=== PATIENT | male | born 1945 | race African-American/Black ===

== ENCOUNTER 2019-04-08 11:35 | Outpatient (CLI) | payer MEDICARE ==
--- NOTE | 2019-04-08 12:20 | RAD ---
XR Chest Pa Lat STANDARD History: [Acute bronchitis with COPD J 44.0] Comparison: Radiograph 2011. Radiograph June 2018 Findings: Heart size mildly enlarged. No pneumothorax. No effusion. No focal airspace consolidation. Dual-lead pacer is in place, unchanged. No acute osseous abnormality. Impression: Cardiomegaly otherwise no acute intrathoracic abnormality.
== END 2019-04-08 11:36 | disposition home or self-care (01) ==
LOC: BICRAD 11:35
PROVIDERS: ATTEND Family Medicine
DX: J44.0 Chronic obstructive pulmonary disease with (acute) lower respiratory infection (principal); I51.7 Cardiomegaly
CPT/HCPCS: 71046

== ENCOUNTER 2019-12-22 14:33 | Outpatient (CLI) | payer MEDICARE, MEDICAID ==
--- NOTE | 2019-12-22 15:43 | RAD ---
THORACIC SPINE THREE VIEWS: History: Midback pain. FINDINGS: Vertebral bodies appear to maintain normal height. Prominent osteophytic change is seen in the mid to lower thoracic spine. Pedicles are intact. IMPRESSION: Moderate osteoarthritic changes of the spine. POS: MARIA
--- NOTE | 2019-12-22 15:44 | RAD ---
RIGHT SHOULDER THREE VIEWS: History: Right shoulder pain. FINDINGS: There are some moderate arthritic changes of the glenohumeral and AC joints. There are no signs of fr acture. IMPRESSION: Mild to moderate osteoarthritic change of the shoulder. POS: MARIA
--- NOTE | 2019-12-22 15:46 | RAD ---
LUMBAR SPINE TWO VIEWS: History: Low back pain. FINDINGS: Vertebral bodies are normal in height. There are degenerative osteophytes along the course of the spi ne. There is some very minimal disc narrowing at L4-5. Degenerative facet changes are noted. Pedicles are intact. IMPRESSION: Arthritic changes of the spine, fairly similar in appearance to the previous 01-06-04 study. Slight inc rease in osteophytic and facet hypertrophic changes. POS: MARIA
== END 2019-12-22 14:34 | disposition home or self-care (01) ==
LOC: BICRAD 14:33
PROVIDERS: ATTEND Family Medicine
DX: M25.511 Pain in right shoulder (principal); G89.29 Other chronic pain; M54.6 Pain in thoracic spine; M46.96 Unspecified inflammatory spondylopathy, lumbar region; M25.78 Osteophyte, vertebrae; M19.011 Primary osteoarthritis, right shoulder; M47.814 Spondylosis without myelopathy or radiculopathy, thoracic region
CPT/HCPCS: 36415; 72072; 72100; 80053; 80061; 85025

== ENCOUNTER 2020-07-12 13:11 | Emergency (ER) | payer MEDICARE, OTHER ==
--- NOTE | 2020-07-12 13:33 | RAD ---
CHEST 1 VIEW: HISTORY: Chest pain and shortness of breath. COMPARISON: Radiograph of 06/17/2020. FINDINGS: Heart size is enlarged. Mild edema. Moderate right effusion. No pneumothorax. Pacer leads project over the right atrium and right ventricle. IMPRESSION: Cardiomegaly with mild pulmonary edema and moderate right effusion. POS: HOME
[2020-07-12 13:38] LABS: Hemoglobin 13.8 g/dL (14.0-18.0); Mean Corpuscular HGB CONC 32.8 g/dL (32.0-36.0); Mean Corpuscular Hemoglobin 35.2 pg (27.0-31.0); Mean Platelet Volume 8.5 fL (7.4-10.4); Platelet Count 148 thou/uL (130-400); RBC Distribution Width 11.9 % (11.5-14.5); Red Blood Cell (RBC) Count 3.92 mill/uL (4.70-6.10); White Blood Cell (WBC) Count 4.3 thou/uL (4.8-10.8)
[2020-07-12 13:53] LABS: #Basophils 0.1 thou/uL (0.0-0.2); #Eosinphils 0.2 thou/uL (0.0-0.7); #Lymphocytes 1.8 thou/uL (1.20-3.40); #Monocytes 0.7 thou/uL (0.11-0.59); #Neutrophils 2.2 thou/uL (1.40-6.50); %Basophils 1.2 % (0.0-1.0); %Eosinophils 4.2 % (0.0-10.0); %Lymphocytes 35.7 % (21.0-51.0); %Monocytes 14.9 % (0.0-10.0); Eosinophils 3 % (0-10); Lymphocytes 28 % (21-51); MDiff Complete? YES; Macrocytosis SLIGHT = 6-15 cells (100X) (0-5/hpf); Monocytes 17 % (0-10); Neutrophil 45 % (42-75); Platelet Morphology Comment Appears Adequate; Reactive Lymphocytes 5 % (0-10)
[2020-07-12 13:55] LABS: ALT (SGPT) 29 U/L (8-55); AST (SGOT) 36 U/L (5-34); Albumin 3.6 g/dL (3.4-4.8); Alkaline Phosphatase 75 U/L (40-110); Anion Gap 17 mmol/L (10-20); BUN (Urea Nitrogen) 12 mg/dL (8.4-25.7); Bilirubin, Total 1.4 mg/dL (0.2-1.2); Calc. Creatinine Clearance 0 mL/min (70-130); Carbon Dioxide 23 mmol/L (23-31); Chloride 100 mmol/L (98-107); Estimated GFR-MDRD 73; Globulin 2.6 g/dL (2.4-3.5); Glucose 101 mg/dL (83-110); Potassium 4.1 mmol/L (3.5-5.1); Protein, Total 6.2 g/dL (5.8-8.1); Sodium 136 mmol/L (136-145)
[2020-07-12] MEDS ORDERED: Metoprolol Tartrate 5 MG/5 ML VIAL ONE ×2 (13:57→15:20)
[2020-07-12] MEDS ORDERED: Aspirin Chewable 81 MG TAB ONE (15:20)
[2020-07-12] MEDS ORDERED: Furosemide 40 MG/4 ML VIAL ONE (15:20)
--- NOTE | 2020-07-17 15:49 | EKG ---
Test Reason : Blood Pressure : / mmHG Vent. Rate : 060 BPM Atrial Rate : 060 BPM P-R Int : 244 ms QRS Dur : 086 ms QT Int : 460 ms P-R-T Axes : 085 007 -12 degrees QTc Int : 460 ms Atrial-paced rhythm with prolonged AV conduction Abnormal ECG Confirmed by AUGUSTO TOBIN DO ([id number]), editorial director JUAN FRANK ([id number]) on 07/17/2020 3:48:59 PM Referred By: Confirmed By:AUGUSTO TOBIN DO
--- NOTE | 2020-07-17 16:06 | EKG ---
Test Reason : Blood Pressure : / mmHG Vent. Rate : 105 BPM Atrial Rate : 089 BPM P-R Int : 000 ms QRS Dur : 080 ms QT Int : 374 ms P-R-T Axes : 000 032 267 degrees QTc Int : 494 ms Atrial fibrillation w/intermittent pacing Septal infarct , age undetermined Abnormal ECG Confirmed by AUGUSTO TOBIN DO ([id number]), material expeditor JUAN FRANK ([id number]) on 07/17/2020 4:05:56 PM Referred By: Confirmed By:AUGUSTO TOBIN DO
== END 2020-07-12 16:42 | disposition left against medical advice (07) ==
LOC: ERS 13:11
DX: I11.0 Hypertensive heart disease with heart failure (principal); I50.9 Heart failure, unspecified; I48.91 Unspecified atrial fibrillation; R06.2 Wheezing; F32.9 Major depressive disorder, single episode, unspecified; F17.210 Nicotine dependence, cigarettes, uncomplicated; Z79.899 Other long term (current) drug therapy; Z79.01 Long term (current) use of anticoagulants
CPT/HCPCS: 36415; 71045; 80053; 82553; 83880; 84484; 85025; 92960; 93005; 99156; J1940

== ENCOUNTER 2020-07-21 11:24 | Inpatient (IN) | payer MEDICARE, MEDICAID, OTHER ==
[2020-07-21] MEDS ORDERED: Nitroglycerin 2% Ointment 1 INCH/1 GM Packet ONE (11:55)
[2020-07-21] MEDS ORDERED: Furosemide 40 MG/4 ML VIAL ONE (11:55)
[2020-07-21 12:16] LABS: Hemoglobin 13.2 g/dL (14.0-18.0); Mean Corpuscular HGB CONC 32.5 g/dL (32.0-36.0); Mean Corpuscular Hemoglobin 34.4 pg (27.0-31.0); Mean Platelet Volume 8.5 fL (7.4-10.4); Platelet Count 152 thou/uL (130-400); RBC Distribution Width 11.9 % (11.5-14.5); Red Blood Cell (RBC) Count 3.83 mill/uL (4.70-6.10); White Blood Cell (WBC) Count 4.3 thou/uL (4.8-10.8)
[2020-07-21 12:33] LABS: Band 1 % (5-11); Eosinophils 2 % (0-10); Lymphocytes 32 % (21-51); MDiff Complete? YES; Metamyelocyte 1 % (0-0); Monocytes 9 % (0-10); Neutrophil 55 % (42-75); Platelet Morphology Comment Appears Adequate; RBC Morphology Normal
[2020-07-21 12:36] LABS: ALT (SGPT) 22 U/L (8-55); AST (SGOT) 27 U/L (5-34); Albumin 3.5 g/dL (3.4-4.8); Alkaline Phosphatase 71 U/L (40-110); Anion Gap 12 mmol/L (10-20); BUN (Urea Nitrogen) 11 mg/dL (8.4-25.7); Calc. Creatinine Clearance 0 mL/min (70-130); Carbon Dioxide 25 mmol/L (23-31); Chloride 99 mmol/L (98-107); Estimated GFR-MDRD 76; Glucose 113 mg/dL (83-110); Magnesium 1.8 mg/dL (1.6-2.6); Protein, Total 6.5 g/dL (5.8-8.1); Sodium 132 mmol/L (136-145)
[2020-07-21 12:41] LABS: Troponin I Less than 0.010 ng/mL (< 0.028)
--- NOTE | 2020-07-21 13:52 | RAD ---
XR Chest 1 View Portable HISTORY: Shortness of breath COMPARISON: 07/12/2020 FINDINGS: The heart size is prominent but stable. Left-sided pacemaker device remains in place. The m oderate-sized right pleural effusion is seen with adjacent infiltrate/atelectatic change, slightly larger than on the previous exam. No pneumothoraces are seen.
--- NOTE | 2020-07-21 14:03 | PDOC.HHP ---
Hospitalist HPI - History of Present Illness SOB History of Present Illness: PCP: Dr. Calabrese Enamel Burner: Dr. Bourne The patient is a 75-year-old male with a past medical history significant for CHF, pacemaker (2009), atrial fibrillation (on Eliquis), hypertension, hyperlipidemia, COPD that presents to the ER for the above complaint. The patient was seen in the emergency department about 10 days ago, was in A. fib with RVR that required cardioversion. Patient left AGAINST MEDICAL ADVICE at that time. Patient reports developing progressive shortness of breath, dyspnea on exertion, paroxysmal nocturnal dyspnea, swelling to lower extremities bilaterally and weight gain over the past 2 to 3 days. He reports that he ran out of his prescribed Lasix tablets. He reports that he was to follow-up with his oracle reports developer, Dr. Bourne on Sunday. Denies any chest pain, heart palpitations. Denies recent cough, wheezing or fever. Reports compliant with other home medications. Denies any abdominal pain, nausea, vomiting or diarrhea. Denies any urinary symptoms. ED Course: VITAL SIGNS SunJul 21, 2020 11:25 COLLEEN Montaño Lauren BP: 114/78, Pulse: 89, Resp: 18, Temp: 97.5 (Oral), Pain: 0, O2 sat: 97 on (Room Air), Time: 07/21/2020 11:25. VITAL SIGNS SunJul 21, 2020 12:12 COLLEEN Woody Kelsey BP: 126/78, Pulse: 84, Resp: 24 (Non-Labored), Pain: 0, O2 sat: 98 on (Room Air), Time: 07/21/2020 12:12. VITAL SIGNS SunJul 21, 2020 12:35 COLLEEN Woody Kelsey BP: 124/90, Pulse: 95, Resp: 22, Pain: 0, O2 sat: 95, Time: 07/21/2020 12:35. VITAL SIGNS SunJul 21, 2020 13:06 COLLEEN Woody Kelsey BP: 133/77, Pulse: 87, Resp: 24, Pain: 0, O2 sat: 95 on (Room Air), Time: 07/21/2020 13:06. Medication administration: Nitro-Bid transdermal 1 inch Topical Given 12:09 07/21/2020 furosemide injection 40 mg IV Push Given 12:08 07/21/2020 Hospitalist ROS - Review of Systems Constitutional: denies: fever, chills Respiratory: reports: shortness of breath, SOB with excertion. denies: cough, hemoptysis, pleuritic pain, sputum, wheezing Cardiovascular: reports: edema (BLE). denies: chest pain, palpitations, light headedness Gastrointestinal: denies: nausea, vomiting, abdominal pain, diarrhea, constipation Genitourinary: denies: dysuria, incontinence, hematuria Neurological: denies: weakness, incoordination, change in speech, confusion All other systems reviewed; all pertinent +/- noted in HPI/Subj - Medication Medications: sotalol oral tablet : Strength - 120 mg : ORAL Patient Dose: 120 mg p.o. twice daily amLODIPine tablet : Strength - 5 mg : ORAL Patient Dose: 5 mg p.o. daily Lasix oral tablet : Strength - 20 mg : ORAL Patient Dose: 40 mg p.o. daily Eliquis tablet : Strength - 5 mg : ORAL Patient Dose: 5 mg p.o. twice daily atorvastatin tablet : Strength - 40 mg : ORAL Patient Dose: 40 mg p.o. daily Combivent Respimat mist : Strength - 20 mcg-100 mcg/actuation : INHALATION Patient Dose: Unknown. Allergies: NKDA Hospitalist History - Past Medical History Source: patient, RN notes reviewed Other Medical History: MEDICAL HISTORY Notes: "bad heart and bad eyes" HTN, glaucoma, CHF, AFib, HLD, COPD MALE SURGICAL HISTORY eye surgery pacemaker. PSYCHIATRIC HISTORY Notes: depression. SOCIAL HISTORY Patient drinks every day, less than 5 drinks per day (beer, sometimes gin) denies alcohol withdrawals, Patient denies drug use, Patient currently uses tobacco, smokes cigarettes, 1/2 ppd. Lives in [facility] with spouse. Retired. Fully independent. FAMILY HISTORY: Contributory for cardiac and pulmonary disease. - Exam General Appearance: NAD, awake alert Eye: PERRL, anicteric sclera ENT: normocephalic atraumatic, moist mucosa Neck: supple, symmetric, no JVD Heart: no murmur, no gallops, no rubs, normal peripheral pulses, irregular Respiratory: no wheezes, no rales, no ronchi, no tachypnea Respiratory - other findings: Diminished in bases Gastrointestinal: soft, non-tender, normal bowel sounds, no bruit, no guarding, no rigidity Extremities: no cyanosis Extremities - other findings: 3+ edema BLEs Skin: no rashes Neurological: normal sensation to touch, no weakness, no focal deficits Musculoskeletal: normal tone, normal strength Psychiatric: normal affect, A&O x 3 Hospitalist Results - Labs Result Diagrams: 07/21/20 11:57 07/21/20 11:57 Lab results: WBC 4.3 thou/uL (4.8-10.8) L 07/21/20 11:57 Hgb 13.2 g/dL (14.0-18.0) L 07/21/20 11:57 Hct 40.5 % (42.0-52.0) L 07/21/20 11:57 MCV 106.0 fL (78.0-98.0) H 07/21/20 11:57 Plt Count 152 thou/uL (130-400) 07/21/20 11:57 Band Neuts % (Manual) 1 % (5-11) L 07/21/20 11:57 Sodium 132 mmol/L (136-145) L 07/21/20 11:57 Potassium 4.0 mmol/L (3.5-5.1) 07/21/20 11:57 Chloride 99 mmol/L (98-107) 07/21/20 11:57 Carbon Dioxide 25 mmol/L (23-31) 07/21/20 11:57 BUN 11 mg/dL (8.4-25.7) 07/21/20 11:57 Creatinine 1.13 mg/dL (0.7-1.3) 07/21/20 11:57 Glucose 113 mg/dL (83-110) H 07/21/20 11:57 Calcium 9.0 mg/dL (7.8-10.44) 07/21/20 11:57 Total Bilirubin 1.0 mg/dL (0.2-1.2) 07/21/20 11:57 AST 27 U/L (5-34) 07/21/20 11:57 ALT 22 U/L (8-55) 07/21/20 11:57 Alkaline Phosphatase 71 U/L (40-110) 07/21/20 11:57 Troponin I Less than 0.010 ng/mL (< 0.028) 07/21/20 11:57 B-Natriuretic Peptide 797.9 pg/mL (0-100) H 07/21/20 11:57 Serum Total Protein 6.5 g/dL (5.8-8.1) 07/21/20 11:57 Albumin 3.5 g/dL (3.4-4.8) 07/21/20 11:57 - EKG Interpretation EK lead EKG interpreted by Emergency Department Physician at time of study, Heart rate 92, A. fib with PVCs, PVCs are consistent with a paced ventricular rhythm, nonspecific ST-T wave changes - Radiology Interpretation Chest x-ray Status: report reviewed by me Additional Comment: FINDINGS: The heart size is prominent but stable. Left-sided pacemaker device remains in place. The m oderate-sized right pleural effusion is seen with adjacent infiltrate/atelectatic change, slightly larger than on the previous exam. No pneumothoraces are seen. Hospitalist H&P A/P - Problem (1) CHF exacerbation Code(s): I50.9 - HEART FAILURE, UNSPECIFIED Status: Acute (2) Pleural effusion, right Code(s): J90 - PLEURAL EFFUSION, NOT ELSEWHERE CLASSIFIED Status: Acute (3) Hyponatremia Code(s): E87.1 - HYPO-OSMOLALITY AND HYPONATREMIA Status: Acute (4) Atrial fibrillation Code(s): I48.91 - UNSPECIFIED ATRIAL FIBRILLATION Status: Acute Qualifiers: Atrial fibrillation type: persistent (not longstanding) Qualified Code(s): I48.19 - Other persistent atrial fibrillation; I48.1 - Persistent atrial fibrillation (5) HTN (hypertension) Code(s): I10 - ESSENTIAL (PRIMARY) HYPERTENSION Status: Chronic (6) COPD (chronic obstructive pulmonary disease) Status: Chronic (7) HLD (hyperlipidemia) Code(s): E78.5 - HYPERLIPIDEMIA, UNSPECIFIED Status: Chronic (8) Glaucoma Code(s): H40.9 - UNSPECIFIED GLAUCOMA Status: Chronic - Plan Plan: 75/M with PMH CHF, pacemaker, atrial fibrillation, COPD presents for progressive shortness of breath. Admit to telemetry, inpatient status. Expected length of stay greater than 2 midnights. #CHF exacerbation Presented afebrile with normal blood pressure, normal pulse, normal respirations, normal O2 sat. Reports missing home dose of Lasix x3 days. EKG atrial fibrillation, rate controlled. BNP 797, baseline appears to be 481 (06/17/2020) Troponin negative. Chest x-ray positive moderate right pleural effusion with adjacent infiltrate larger than previous exam. Received Lasix 40 IV push x1 in ED. Voided 2 L. Consult oracle reports developer, Dr. Bourne. Continue Lasix 40 mg IVP twice daily. Give Lasix 40 mg IVP at 1800. Continue Nitropaste. Daily weights, fluid restriction, consult cardiac rehab. #Pleural effusion, right Chest x-ray reports right pleural effusion with adjacent infiltrate slightly larger than previous exam. Repeat chest x-ray in a.m. #Hyponatremia Mild. Presented Na 130. Likely fluid volume overload. We will diurese and repeat level in a.m. #Atrial fibrillation Patient was seen in emergency department approximately 10 days ago, found to be in atrial fibrillation, cardioverted, left AMA. Continue home dose of Eliquis. Continue home dose of sotalol. #Hypertension Presented with normal blood pressure. We will restart home dose of Norvasc. Continue monitor blood pressure. #COPD No wheezes on exam. No acute respiratory distress. We will restart patient's home medications once reconciled by nursing. #Hyperlipidemia We will restart patient's home atorvastatin. #Tobacco abuse Reports half pack per day habit. Unwilling to quit. NRT patch. Counseled tobacco cessation. No pharmacological DVT prophylaxis. No SCDs. Protonix for GI prophylaxis. Full code. MPOA is Yuri Lane (spouse) at [phone]. Discussed case with Dr. Cuellar.
[2020-07-21 16:17] LABS: Troponin I 0.019 ng/mL (< 0.028)
[2020-07-21] MEDS ORDERED: Ondansetron ODT 4 MG TAB PO PRN (16:20)
[2020-07-21] MEDS ORDERED: Senokot S 8.6-50 MG TAB PO PRN (16:20)
[2020-07-21] MEDS ORDERED: Calcium Carbonate 500 MG ChewTAB PO PRN (16:20)
[2020-07-21] MEDS ORDERED: Acetaminophen 325 MG TAB PO PRN (16:20)
[2020-07-21] MEDS ORDERED: Ondansetron PF 4 MG/2 ML Vial IVP PRN (16:20)
[2020-07-21] MEDS: Nicotine 14 MG PATCH TD SCH (16:51)
[2020-07-21 17:15] LABS: Bacteria/HPF None Seen HPF (None Seen); Bilirubin Negative (Negative); Blood, Urine Negative (Negative); Clarity Clear (Clear); Glucose, Urine (Dipstick) Normal (Negative); Ketone, Urine Negative (Negative); Leukocyte Negative Leu/uL (Negative); Nitrite Negative (Negative); Protein, Urine (Dipstick) Negative (Neg-Trace); RBC/HPF 0-3 HPF (0-3); Specific Gravity, Urine 1.004 (1.002-1.036); Squamous Epithelial None Seen HPF (0-3); Urobilinogen Normal mg/dL (Less than 2); WBC/HPF 0-3 HPF (0-3)
[2020-07-21] MEDS ORDERED: Furosemide 40 MG/4 ML VIAL SLOW IVP SCH (18:00)
[2020-07-21] MEDS ORDERED: Furosemide 20 MG/2 ML VIAL SLOW IVP SCH (18:00)
[2020-07-21] MEDS: Mometasone 100 MCG/Formoterol 5 MCG 120 PUFF INHALER INH SCH (18:47)
[2020-07-21 19:21] LABS: Troponin I Less than 0.010 ng/mL (< 0.028)
[2020-07-21] MEDS: Nitroglycerin 2% Ointment 1 INCH/1 GM Packet TOP SCH (20:59)
[2020-07-21] MEDS: Apixaban 5 MG TAB PO SCH (20:59)
[2020-07-21] MEDS: Amlodipine 5 MG TAB PO SCH (20:59)
[2020-07-21] MEDS: Sotalol HCl 80 MG TAB PO SCH (21:00)
[2020-07-22 04:34] LABS: Anion Gap 13 mmol/L (10-20); BUN (Urea Nitrogen) 12 mg/dL (8.4-25.7); Calc. Creatinine Clearance 99 mL/min (70-130); Calcium 9.2 mg/dL (7.8-10.44); Carbon Dioxide 25 mmol/L (23-31); Chloride 102 mmol/L (98-107); Estimated GFR-MDRD Greater than 90; Glucose 95 mg/dL (83-110); Potassium 3.4 mmol/L (3.5-5.1); Sodium 137 mmol/L (136-145)
[2020-07-22 04:37] LABS: Eosinophils 1 % (0-10); Hemoglobin 13.2 g/dL (14.0-18.0); Lymphocytes 28 % (21-51); MDiff Complete? YES; Macrocytosis SLIGHT = 6-15 cells (100X) (0-5/hpf); Mean Corpuscular HGB CONC 32.8 g/dL (32.0-36.0); Mean Corpuscular Hemoglobin 34.6 pg (27.0-31.0); Mean Platelet Volume 8.4 fL (7.4-10.4); Monocytes 12 % (0-10); Neutrophil 59 % (42-75); Platelet Count 143 thou/uL (130-400)
[2020-07-22] MEDS: Nitroglycerin 2% Ointment 1 INCH/1 GM Packet TOP SCH ×2 (05:29→14:48)
[2020-07-22] MEDS: Furosemide 40 MG/4 ML VIAL SLOW IVP SCH ×2 (05:29→14:48)
[2020-07-22] MEDS: Mometasone 100 MCG/Formoterol 5 MCG 120 PUFF INHALER INH SCH (07:39)
--- NOTE | 2020-07-22 08:06 | RAD ---
TWO VIEW CHEST: HISTORY: Pleural effusion. COMPARISON: 07/21/2020. FINDINGS: Right-side effusion is again seen, possibly increased since yesterday. Some left basilar atelectatic change and probable small left effusion. Mild cardiomegaly. Pacemaker leads unchanged. No other s ignificant change from yesterday. IMPRESSION: Right side effusion and right basilar atelectasis may be slightly larger today. Chest otherwise is u nchanged. POS: AGW
[2020-07-22] MEDS ORDERED: Atorvastatin Calcium 40 MG TAB PO SCH (09:00)
[2020-07-22] MEDS: Sotalol HCl 80 MG TAB PO SCH (09:08)
[2020-07-22] MEDS: Apixaban 5 MG TAB PO SCH (09:09)
[2020-07-22] MEDS: Amlodipine 5 MG TAB PO SCH (09:09)
[2020-07-22 11:13] VITALS: TEMP 97.6
[2020-07-22 12:12] LABS: SARS-CoV-2 MS2 Positive; SARS-CoV-2 N Gene Negative; SARS-CoV-2 S Gene Negative; SARS-CoV-2 by NAA Not Detected (NotDetected); SARS-CoV-2 orf1ab Negative
[2020-07-22 14:06] VITALS: BMI 28.0
[2020-07-22 16:48] VITALS: BP 103/68
[2020-07-22] MEDS: Nicotine 14 MG PATCH TD SCH (16:50)
--- NOTE | 2020-07-24 13:39 | PQF ---
CLINICAL DOCUMENTATION CLARIFICATION FORM: Dear : Radha Cuellar Date / Time: 07/24/2020 Please exercise your independent, professional judgment in responding to the clarification form. Clinical indicators are provided on the bottom of this form for your review Please check appropriate box(es): HEART FAILURE: A. ACUITY [ ] Acute [ x ] Acute on Chronic [ ] Chronic B. TYPE: [ ] Systolic / HFrEF [ ] Diastolic / HFpEF [ ] Combined Systolic / Diastolic [ ] Hypertensive Heart and Kidney disease [ ] Hypertensive Heart Disease [ ] Other diagnosis [ x ] Unable to determine In addition, please specify: Present on Admission (POA): [ x ] Yes [ ] No [ ] Unable to determine To be completed by CDI/Coding staff for physician review: Present Clinical Indicators - Signs / Symptoms / Labs Results and Location in Medical Record [ x ] Patient with acute CHF exacerbation, given Lasix and nitro. Patient will be admitted for further diuresis and cardiac consultation. ED final diagnoses: CHF exacerbation, pulmonary edema and chronic atrial fibrillation ED provider notes [ x ] BNP 797.9 on 07/21 Laboratory [ x ] Right side effusion and right basilar atelectasis may be slightly larger today Chest x-ray 07/22 by Santhosh Choudhury MD [ x ] 2+ pitting edema in the bilateral lower extremities ED provider notes [ x ] BNP 797, baseline appears to be 481. Received Lasix 40 IV push in the ED. Consult cardiology Dr. Bourne. Continue Lasix 40 mg IVP twice daily. Daily weights, fluid restriction H&P Present Risk Factors Results and Location in Medical Record [ x ] Hypertension, atrial fibrillation, COPD, tobacco abuse H&P Present Treatments Results and Location in Medical Record [ x ] IV Lasix 07/21-07/22 Medications [ x ] Daily weights and fluid restriction H&P [ x ] Chest x-rays 07/21, 07/22 Reports CDS/Exhibits Curator Signature: [id number] Phone #: Date/Time: 07/24/2020 This is a permanent part of the Medical Record [facility]
--- NOTE | 2020-07-25 13:51 | DIS ---
DATE OF ADMISSION: 07/21/2020 DATE OF DISCHARGE: 07/22/2020 ADMISSION DIAGNOSIS: Acute exacerbation of heart failure. HOSPITAL COURSE: Mr. Lane is a 75-year-old male with past medical history of CHF, pacemaker in place; atrial fibrillation on Eliquis s/p conversion; hypertension; hyperlipidemia and COPD, who presented to the emergency department for shortness of breath. The patient was seen in the emergency department about 10 days previous to this admission and was found to be in AFib with RVR that required cardioversion. The patient then left against medical advise. Since that time, he reports developing progressive shortness of breath, dyspnea on exertion, paroxysmal nocturnal dyspnea, and noticing bilateral lower extremity edema and weight gain over the past 2 to 3 days. He reports he takes Lasix 20 mg daily but has run out of his current medications for the past 3 to 4 days. Chest X-ray in the emergency department revealed a right-sided pleural effusion. HOSPITAL COURSE: Cardiology was consulted while the patient was in the hospital with recommendations to continue his Lasix. The patient was diuresised well, saturating well on room air. He was felling better. The patient was deemed stable for discharge home. PHYSICAL EXAMINATION: GENERAL: On exam, the patient was resting comfortably in bed. Not requiring supplemental oxygen. HEART: He has regular rate and rhythm LUNGS: His left side was clear to auscultation. His right side has decreased breath sounds at the base. ABDOMEN: Soft, nontender, nondistended. EXTREMITIES: mild bilateral lower extremity edema that had improved. He has followup appointment with his field radio technician at 9 AM tomorrow morning, 07/23/2020. ACTIVITY: As tolerated. DIET: Heart-healthy diet, sodium restriction, fluid restriction. MEDICATIONS: New medications that were started in the hospital, he was started on Lasix 40 mg daily until he can have further evaluation by his field radio technician. He was also instructed to follow up with his PCP and to attend his field radio technician appointment tomorrow morning at 9. Routine precautions were given. Discharge of this patient took greater than 30 minutes. Job ID: [id number] MTDD
--- NOTE | 2020-07-26 08:26 | CON ---
DATE OF CONSULTATION: 07/21/2020 REASON FOR CONSULTATION: Shortness of breath. HISTORY OF PRESENT ILLNESS: Mr. Lane is a 75-year-old gentleman, who is a patient of Dr. Jameel Bourne. He recently presented with shortness of breath. He has a previous history of [id number] aortic stenosis, and been followed by Dr. Jameel Bourne. He is scheduled for procedure next week per patient. He was given Lasix with significant improvement in symptoms. PAST MEDICAL HISTORY: As above including pacemaker placement, atrial fibrillation, hypertension, hyperlipidemia, COPD. HOME MEDICATIONS: Include sotalol, amlodipine, Lasix, Eliquis, atorvastatin, and Combivent. ALLERGIES: NONE. REVIEW OF SYSTEMS: A 10-point review of systems is reviewed as above, otherwise negative. PHYSICAL EXAMINATION: GENERAL: Patient is a pleasant male who is in no acute distress. The patient appears their stated age. VITAL SIGNS: Blood pressure 120/70, pulse 80, respirations 20. NEUROLOGIC: The patient is alert and oriented x3 with no focal neurologic deficits. HEENT: Sclerae without icterus. Mouth has moist mucous membranes with normal pallor. NECK: No JVD. Carotid upstroke brisk. No bruits bilaterally. LUNGS: Clear to auscultation with unlabored respirations. BACK: No scoliosis or kyphosis. CARDIAC: Regular rate and rhythm with normal S1 and S2. No S3 or S4 noted. No significant rubs, murmurs, thrills, or gallops noted throughout the precordium. PMI is not displaced. There is no parasternal heave. ABDOMEN: Soft, nontender, nondistended. No peritoneal signs present. No hepatosplenomegaly. No abnormal striae. EXTREMITIES: 2+ femoral and 2+ dorsalis pedis pulses. No cyanosis, clubbing, or edema. SKIN: No gross abnormalities. PERTINENT LABORATORY DATA: Hemoglobin 13.2, hematocrit 40.2. Creatinine 0.91. BNP of 797. IMPRESSION: 1. Aortic stenosis. 2. Acute on chronic systolic heart failure. 3. Atrial fibrillation. RECOMMENDATIONS: Mr. Lane is doing much better after diuresis. I discussed proceeding with coronary angiography with Mr. Lane. He states he would like to follow up with his primary engine repairer, Dr. Jameel Bourne. He appears to be stable. I did discuss the case with Dr. Jameel Bourne. He has an appointment tomorrow (Sunday) to see Dr. Bourne for further recommendations. Otherwise, I have no further recommendations. Job ID: [id number]
== END 2020-07-22 19:20 | disposition home or self-care (01) | DRG 292 ==
LOC: ERS 11:24 → ERHOLD 13:51 → 2NO 16:17
PROVIDERS: ADMIT Family Medicine; ATTEND Family Medicine
DX: I11.0 Hypertensive heart disease with heart failure (principal); E87.1 Hypo-osmolality and hyponatremia; I48.19 Other persistent atrial fibrillation; Z20.828 Contact with and (suspected) exposure to other viral communicable diseases; E78.5 Hyperlipidemia, unspecified; J44.9 Chronic obstructive pulmonary disease, unspecified; F32.9 Major depressive disorder, single episode, unspecified; H40.9 Unspecified glaucoma; I35.0 Nonrheumatic aortic (valve) stenosis; I50.23 Acute on chronic systolic (congestive) heart failure; F17.210 Nicotine dependence, cigarettes, uncomplicated; Z95.0 Presence of cardiac pacemaker; Z79.01 Long term (current) use of anticoagulants; Z71.6 Tobacco abuse counseling
CPT/HCPCS: 36415; 71045; 71046; 80048; 80053; 81001; 83735; 83880; 84443; 84484; 85025; 87635; 93005; 93798; 96374; J1940; U0003

== ENCOUNTER 2021-08-17 14:10 | Outpatient (CLI) | payer MEDICARE, MEDICAID | END 2021-08-17 14:11 | disposition home or self-care (01) | LOC: BICRAD 14:10 | PROVIDERS: ATTEND Family Medicine | DX: J44.9 Chronic obstructive pulmonary disease, unspecified (principal); I51.7 Cardiomegaly; J81.1 Chronic pulmonary edema; J90 Pleural effusion, not elsewhere classified | CPT/HCPCS: 71046 ==

== ENCOUNTER 2021-09-12 09:33 | Outpatient (CLI) | payer MEDICARE, MEDICAID | END 2021-09-12 09:34 | disposition home or self-care (01) | LOC: BICULT 09:33 | PROVIDERS: ATTEND Family Medicine | DX: Z12.2 Encounter for screening for malignant neoplasm of respiratory organs (principal); Z13.6 Encounter for screening for cardiovascular disorders; F17.210 Nicotine dependence, cigarettes, uncomplicated; R91.1 Solitary pulmonary nodule; J90 Pleural effusion, not elsewhere classified | CPT/HCPCS: 71271; 76775 ==

== ENCOUNTER 2021-09-27 13:57 | Outpatient (CLI) | payer MEDICARE, MEDICAID | END 2021-09-27 13:58 | disposition home or self-care (01) | LOC: BICCT 13:57 | PROVIDERS: ATTEND Family Medicine | DX: R59.0 Localized enlarged lymph nodes (principal); J90 Pleural effusion, not elsewhere classified; R91.1 Solitary pulmonary nodule; I25.10 Atherosclerotic heart disease of native coronary artery without angina pectoris | CPT/HCPCS: 71260; 82565 ==

== ENCOUNTER 2022-10-09 13:36 | Outpatient (CLI) | payer OTHER ==
[2022-10-09] MEDS ORDERED: Iopamidol-370 76% 500 ML 1 ML ONE (16:02)
== END 2022-10-09 13:37 | disposition home or self-care (01) ==
LOC: BICCT 13:36
PROVIDERS: ATTEND Family Medicine
DX: Z12.2 Encounter for screening for malignant neoplasm of respiratory organs (principal); I73.9 Peripheral vascular disease, unspecified; F17.210 Nicotine dependence, cigarettes, uncomplicated; J90 Pleural effusion, not elsewhere classified; J98.11 Atelectasis
CPT/HCPCS: 71271; 82565; Q9967

== ENCOUNTER 2022-12-21 16:07 | Inpatient (IN) | payer OTHER, MEDICAID ==
[~2022-12-21 16:07] MED LIST: Iopamidol-370 76% 500 ML 1 ML ONE
[2022-12-21 16:30] LABS: Hemoglobin 10.4 g/dL (14.0-18.0); Mean Corpuscular Hemoglobin 29.4 pg (27.0-31.0); Mean Corpuscular Volume 94.7 fl (78.0-98.0); Mean Platelet Volume 7.7 fL (7.4-10.4); Platelet Count 208 10x3/uL (130-400); RBC Distribution Width 16.6 % (11.5-14.5); Red Blood Cell (RBC) Count 3.53 mill/uL (4.70-6.10)
[2022-12-21 16:41] LABS: PTT 39.2 sec (22.9-36.1); Prothrombin Time 20.9 sec (12.0-14.7)
[2022-12-21 16:43] LABS: INR-International Normal Ratio 1.7
[2022-12-21 16:51] LABS: Anisocytosis SLIGHT = 6-15 cells (100X) (0-5/hpf); Band 10 % (5-11); Lymphocytes 1 % (21-51); MDiff Complete? YES; Monocytes 6 % (0-10); Neutrophil 83 % (42-75); Platelet Morphology Comment Appears Adequate; Polychromasia SLIGHT = 2-3 cells (100X) (0-2/hpf); Target Cells SLIGHT = 2-5 cells (100X) (0-1/hpf); Vacuoles SLIGHT
[2022-12-21 16:53] LABS: ALT (SGPT) 8 U/L (8-55); AST (SGOT) 21 U/L (5-34); Albumin 2.8 g/dL (3.4-4.8); Alkaline Phosphatase 98 U/L (40-110); Anion Gap 16 mmol/L (10-20); BUN (Urea Nitrogen) 33 mg/dL (8.4-25.7); Bilirubin, Total 1.5 mg/dL (0.2-1.2); Calc. Creatinine Clearance 0 mL/min (70-130); Calcium 9.7 mg/dL (7.8-10.44); Carbon Dioxide 20 mmol/L (23-31); Chloride 99 mmol/L (98-107); Estimated GFR 50; Globulin 3.5 g/dL (2.4-3.5); Glucose 110 mg/dL (83-110); Potassium 3.7 mmol/L (3.5-5.1); Protein, Total 6.3 g/dL (5.8-8.1); Sodium 131 mmol/L (136-145)
[2022-12-21] MEDS ORDERED: Cefepime 2 GM VIAL ONE (17:05)
[2022-12-21] MEDS ORDERED: Aspirin Chewable 81 MG TAB ONE (17:18)
[2022-12-21 17:21] LABS: CKMB 1.4 ng/mL (0-6.6)
[2022-12-21] MEDS ORDERED: Ondansetron PF 4 MG/2 ML Vial IVP PRN (17:26)
[2022-12-21] MEDS ORDERED: Senokot S 8.6-50 MG TAB PO PRN (17:26)
[2022-12-21] MEDS ORDERED: Acetaminophen 325 MG TAB PO PRN (17:26)
[2022-12-21] MEDS ORDERED: Calcium Carbonate 500 MG ChewTAB PO PRN (17:26)
[2022-12-21] MEDS ORDERED: HYDROcodone/Acetaminophen 5/325 mg Tablet PO PRN (17:26)
[2022-12-21] MEDS ORDERED: Electrolyte Replacement Protocol 1 EACH FS SCH (17:30)
[2022-12-21] MEDS ORDERED: Lorazepam 1 MG TAB PO PRN (17:30)
[2022-12-21] MEDS ORDERED: Lorazepam 2 MG/ML VIAL IM PRN (17:30)
[2022-12-21] MEDS ORDERED: Piperacillin/Tazobactam 3.375 GM in Sodium Chloride 0.9% 100 ML IVPB SCH (18:00)
[2022-12-21 18:36] LABS: Bilirubin Negative (Negative); Blood, Urine 1+ (Negative); Clarity Clear (Clear); Glucose, Urine (Dipstick) Normal (Negative); Ketone, Urine Negative (Negative); Leukocyte Negative Leu/uL (Negative); Nitrite Negative (Negative); Protein, Urine (Dipstick) 20 mg/dL (Neg-Trace); Squamous Epithelial 0-3 HPF (0-3); Transitional Epithelial 0-3 HPF (None Seen); Urobilinogen 6 mg/dL (Less than 2)
[2022-12-21 18:47] LABS: Bacteria/HPF Rare-Few HPF (None Seen)
[2022-12-21 20:11] LABS: Actual Bicarbonate (HCO3v) 23 mEq/L (22-28); Analyzer IN Cardio ER; Base Excess -1.4 mEq/L (-2.0 to +3.0); Calcium, Ionized (venous) 1.23 mmol/L (1.16-1.32); Chloride (VBG) 97 mmol/L (98-106); Hemoglobin (Hb) 10.4 g/dL (12.6-17.4); Potassium (VBG) 3.75 mmol/L (3.70-5.30); Sodium 127.7 mmol/L (133-146)
[2022-12-21 20:33] LABS: Lactic Acid 1.6 mmol/L (0.5-2.2)
[2022-12-21 20:46] LABS: Troponin I 0.854 ng/mL (< 0.028)
[2022-12-21 21:44] VITALS: BMI 20.5
[2022-12-21] MEDS ORDERED: Thiamine 100 MG TAB ONE (21:53)
[2022-12-21] MEDS ORDERED: Famotidine/PF 20 mg/2ml Vial ONE (21:54)
[2022-12-21] MEDS ORDERED: Piperacillin/Tazobactam 3.375 GM VIAL ONE (21:54)
[2022-12-21] MEDS: Sodium Chloride 0.9% 1,000 ML IV SCH (22:18)
[2022-12-21] MEDS: Thiamine 100 MG TAB PO SCH (22:19)
[2022-12-21] MEDS: Atorvastatin Calcium 40 MG TAB PO SCH (22:19)
[2022-12-21] MEDS: Famotidine/PF 20 mg/2ml Vial SLOW IVP SCH (22:19)
[2022-12-22 00:22] LABS: Troponin I 0.885 ng/mL (< 0.028)
[2022-12-22] MEDS ORDERED: Apixaban 5 MG TAB PO SCH ×2 (01:00→09:00)
[2022-12-22] MEDS: Piperacillin/Tazobactam 3.375 GM in Sodium Chloride 0.9% 100 ML IVPB SCH ×3 (01:59→18:00)
[2022-12-22] MEDS ORDERED: Piperacillin/Tazobactam 3.375 GM VIAL ONE (02:00)
[2022-12-22 02:49] LABS: SARS-CoV-2 NAA Rapid Test Not Detected (NotDetected)
[2022-12-22] MEDS: Sodium Chloride 0.9% 1,000 ML IV SCH (03:02)
[2022-12-22 04:31] LABS: Anion Gap 12 mmol/L (10-20); BUN (Urea Nitrogen) 28 mg/dL (8.4-25.7); Calc. Creatinine Clearance 59 mL/min (70-130); Calcium 8.7 mg/dL (7.8-10.44); Carbon Dioxide 23 mmol/L (23-31); Cardiac Risk 6.3 (Less than 4.5); Chloride 101 mmol/L (98-107); Cholesterol 100 mg/dl (< 200 Desired); Estimated GFR 72; Glucose 107 mg/dL (83-110); HDL Cholesterol 16 mg/dL (>60 Neg Risk); LDL Cholesterol, Calculated 64 mg/dL; Potassium 3.8 mmol/L (3.5-5.1); Sodium 132 mmol/L (136-145); Triglycerides 98 mg/dL (Less than 150)
[2022-12-22 05:03] LABS: Anisocytosis SLIGHT = 6-15 cells (100X) (0-5/hpf); Band 5 % (5-11); Burr Cells SLIGHT = 2-5 cells (100X) (0-1/hpf); Hemoglobin 9.4 g/dL (14.0-18.0); Hypochromia SLIGHT = 6-15 cells (100X) (0-5/hpf); Lymphocytes 1 % (21-51); MDiff Complete? YES; Mean Corpuscular HGB CONC 31.5 g/dL (32.0-36.0); Mean Corpuscular Hemoglobin 30.2 pg (27.0-31.0); Mean Platelet Volume 8.1 fL (7.4-10.4); Monocytes 4 % (0-10); Neutrophil 90 % (42-75); Platelet Count 179 10x3/uL (130-400); Platelet Morphology Comment Appears Adequate; RBC Distribution Width 16.8 % (11.5-14.5); Target Cells SLIGHT = 2-5 cells (100X) (0-1/hpf); White Blood Cell (WBC) Count 31.8 10x3/uL (4.8-10.8)
[2022-12-22] MEDS: Multivit, Therapeutic 1 TAB PO SCH (08:37)
[2022-12-22] MEDS: Famotidine/PF 20 mg/2ml Vial SLOW IVP SCH ×2 (08:37→21:03)
[2022-12-22] MEDS: Folic Acid 1 MG TAB PO SCH (08:38)
[2022-12-22] MEDS: Aspirin 81 mg Enteric Coated Tablet PO SCH (08:38)
[2022-12-22] MEDS: Nitroglycerin 0.4 MG TAB (25 Tab Bottle) ONE ×3 (09:40→10:08)
[2022-12-22] MEDS ORDERED: Nitroglycerin 0.4 MG TAB 1 EACH SL PRN (10:23)
[2022-12-22] MEDS ORDERED: Morphine 4 MG/ML VIAL SLOW IVP SCH (10:30)
[2022-12-22 10:44] LABS: Critical Call Chem Troponin I RESULT DECREASING
[2022-12-22] MEDS: Vancomycin 1.5 GRAM/300 ML BAG 1.5 GM in Premix Bag 1 BAG IVPB SCH (13:29)
[2022-12-22] MEDS ORDERED: Morphine 2 MG/ML VIAL SLOW IVP PRN (14:00)
[2022-12-22] MEDS ORDERED: Lorazepam 1 MG TAB PO PRN (17:30)
[2022-12-22] MEDS: Thiamine 100 MG TAB PO SCH (17:59)
[2022-12-22] MEDS: Atorvastatin Calcium 40 MG TAB PO SCH (21:03)
[2022-12-23] MEDS: Piperacillin/Tazobactam 3.375 GM in Sodium Chloride 0.9% 100 ML IVPB SCH ×3 (01:06→19:36)
[2022-12-23 06:06] LABS: INR-International Normal Ratio 1.4; Prothrombin Time 17.9 sec (12.0-14.7)
[2022-12-23 06:18] LABS: ALT (SGPT) Less than 7 U/L (8-55); AST (SGOT) 17 U/L (5-34); Albumin 2.4 g/dL (3.4-4.8); Alkaline Phosphatase 77 U/L (40-110); Anion Gap 10 mmol/L (10-20); BUN (Urea Nitrogen) 21 mg/dL (8.4-25.7); Bilirubin, Total 0.9 mg/dL (0.2-1.2); CRP (Inflammatory) 9.71 mg/dL (= or < 0.5); Calc. Creatinine Clearance 73 mL/min (70-130); Calcium 8.8 mg/dL (7.8-10.44); Carbon Dioxide 25 mmol/L (23-31); Chloride 104 mmol/L (98-107); Estimated GFR 89; Globulin 2.9 g/dL (2.4-3.5); Glucose 117 mg/dL (83-110); Potassium 3.5 mmol/L (3.5-5.1); Protein, Total 5.3 g/dL (5.8-8.1); Sodium 135 mmol/L (136-145)
[2022-12-23 06:35] LABS: Band 12 % (5-11); Hemoglobin 10.2 g/dL (14.0-18.0); Hypochromia SLIGHT = 6-15 cells (100X) (0-5/hpf); Lymphocytes 3 % (21-51); MDiff Complete? YES; Mean Corpuscular HGB CONC 29.7 g/dL (32.0-36.0); Mean Corpuscular Hemoglobin 28.9 pg (27.0-31.0); Mean Corpuscular Volume 97.3 fl (78.0-98.0); Monocytes 11 % (0-10); Neutrophil 74 % (42-75); Platelet Count 192 10x3/uL (130-400); Platelet Morphology Comment Appears Adequate; RBC Distribution Width 16.6 % (11.5-14.5); Red Blood Cell (RBC) Count 3.53 mill/uL (4.70-6.10); Target Cells SLIGHT = 2-5 cells (100X) (0-1/hpf); White Blood Cell (WBC) Count 19.7 10x3/uL (4.8-10.8)
[2022-12-23] MEDS ORDERED: Potassium Chloride 20 MEQ TAB PO SCH (08:30)
[2022-12-23] MEDS: Multivit, Therapeutic 1 TAB PO SCH (10:26)
[2022-12-23] MEDS: Aspirin 81 mg Enteric Coated Tablet PO SCH (10:26)
[2022-12-23] MEDS: Famotidine/PF 20 mg/2ml Vial SLOW IVP SCH ×2 (10:26→20:49)
[2022-12-23] MEDS: Folic Acid 1 MG TAB PO SCH (10:26)
[2022-12-23] MEDS: Vancomycin 1.5 GRAM/300 ML BAG 1.5 GM in Premix Bag 1 BAG IVPB SCH (15:32)
[2022-12-23] MEDS ORDERED: Lorazepam 1 MG TAB PO PRN (17:30)
[2022-12-23] MEDS: Thiamine 100 MG TAB PO SCH (18:07)
[2022-12-23] MEDS: Atorvastatin Calcium 40 MG TAB PO SCH (20:49)
[2022-12-24] MEDS: Piperacillin/Tazobactam 3.375 GM in Sodium Chloride 0.9% 100 ML IVPB SCH ×3 (01:27→17:26)
[2022-12-24] MEDS: Methyl Salicylate/Menthol 85 GM TUBE TOP PRN (01:35)
[2022-12-24 06:27] LABS: #Lymphocytes 1.2 thou/uL (1.20-3.40); #Monocytes 1.5 thou/uL (0.11-0.59); #Neutrophils 12.3 thou/uL (1.40-6.50); %Eosinophils 0.1 % (0.0-10.0); %Lymphocytes 7.8 % (21.0-51.0); %Monocytes 9.8 % (0.0-10.0); %Neutrophils 82.3 % (42.0-75.0); Mean Corpuscular HGB CONC 30.7 g/dL (32.0-36.0); Mean Corpuscular Hemoglobin 29.7 pg (27.0-31.0); Mean Corpuscular Volume 96.6 fl (78.0-98.0); Mean Platelet Volume 8.2 fL (7.4-10.4); Platelet Count 156 10x3/uL (130-400); RBC Distribution Width 16.6 % (11.5-14.5); Red Blood Cell (RBC) Count 3.36 mill/uL (4.70-6.10); White Blood Cell (WBC) Count 14.9 10x3/uL (4.8-10.8)
[2022-12-24 06:46] LABS: Anion Gap 11 mmol/L (10-20); BUN (Urea Nitrogen) 18 mg/dL (8.4-25.7); Calc. Creatinine Clearance 81 mL/min (70-130); Calcium 9.2 mg/dL (7.8-10.44); Carbon Dioxide 23 mmol/L (23-31); Chloride 107 mmol/L (98-107); Estimated GFR 91; Glucose 93 mg/dL (83-110); Potassium 3.6 mmol/L (3.5-5.1); Sodium 137 mmol/L (136-145)
[2022-12-24] MEDS: Multivit, Therapeutic 1 TAB PO SCH (07:54)
[2022-12-24] MEDS: Folic Acid 1 MG TAB PO SCH (07:54)
[2022-12-24] MEDS: Famotidine/PF 20 mg/2ml Vial SLOW IVP SCH ×2 (08:51→21:17)
[2022-12-24 10:29] LABS: Vancomycin, Trough 10.5 ug/mL
[2022-12-24] MEDS ORDERED: Vancomycin 1 GM in Premix Bag 1 BAG IVPB SCH (11:00)
[2022-12-24] MEDS ORDERED: Regadenoson 0.4 MG/5 ML SYRINGE ONE (11:19)
[2022-12-24] MEDS: Vancomycin 1.5 GRAM/300 ML BAG 1.5 GM in Premix Bag 1 BAG IVPB SCH (11:26)
[2022-12-24] MEDS ORDERED: Potassium Chloride 20 MEQ TAB PO SCH (12:00)
[2022-12-24] MEDS: Aspirin 81 mg Enteric Coated Tablet PO SCH (13:02)
[2022-12-24] MEDS: Vancomycin 1 GM in Premix Bag 1 BAG IVPB SCH (16:05)
[2022-12-24] MEDS: Thiamine 100 MG TAB PO SCH (17:26)
[2022-12-24] MEDS ORDERED: Lorazepam 0.5 MG TAB PO PRN (17:30)
[2022-12-24] MEDS: Benzonatate 100 MG CAP PO PRN (21:18)
[2022-12-24] MEDS: Atorvastatin Calcium 40 MG TAB PO SCH (21:18)
[2022-12-25] MEDS: Piperacillin/Tazobactam 3.375 GM in Sodium Chloride 0.9% 100 ML IVPB SCH (01:19)
[2022-12-25] MEDS: Vancomycin 1 GM in Premix Bag 1 BAG IVPB SCH (02:01)
[2022-12-25 05:41] LABS: Anion Gap 11 mmol/L (10-20); BUN (Urea Nitrogen) 14 mg/dL (8.4-25.7); Calc. Creatinine Clearance 83 mL/min (70-130); Carbon Dioxide 20 mmol/L (23-31); Chloride 105 mmol/L (98-107); Estimated GFR 92; Glucose 102 mg/dL (83-110); Potassium 3.9 mmol/L (3.5-5.1); Sodium 132 mmol/L (136-145)
[2022-12-25 05:53] LABS: Band 7 % (5-11); Hypochromia SLIGHT = 6-15 cells (100X) (0-5/hpf); Lymphocytes 1 % (21-51); MDiff Complete? YES; Mean Corpuscular HGB CONC 30.7 g/dL (32.0-36.0); Mean Corpuscular Volume 94.7 fl (78.0-98.0); Mean Platelet Volume 8.3 fL (7.4-10.4); Monocytes 11 % (0-10); Neutrophil 80 % (42-75); Platelet Count 163 10x3/uL (130-400); Platelet Morphology Comment Appears Adequate; RBC Distribution Width 16.7 % (11.5-14.5); Reactive Lymphocytes 1 % (0-10); Red Blood Cell (RBC) Count 3.44 mill/uL (4.70-6.10); White Blood Cell (WBC) Count 14.6 10x3/uL (4.8-10.8)
[2022-12-25] MEDS ORDERED: FLU VACC QS2022-23(65YR UP)/PF 240 MCG/0.7 ML SYRINGE IM ONE (09:00)
[2022-12-25] MEDS ORDERED: Potassium Chloride 20 MEQ TAB PO SCH (09:30)
[2022-12-25] MEDS: Aspirin 81 mg Enteric Coated Tablet PO SCH (09:44)
[2022-12-25] MEDS: Folic Acid 1 MG TAB PO SCH (09:46)
[2022-12-25] MEDS: Multivit, Therapeutic 1 TAB PO SCH (09:46)
[2022-12-25] MEDS: Famotidine/PF 20 mg/2ml Vial SLOW IVP SCH ×2 (09:52→20:06)
[2022-12-25] MEDS ORDERED: Piperacillin/Tazobactam 3.375 GM in Sodium Chloride 0.9% 100 ML IVPB SCH (10:00)
[2022-12-25] MEDS ORDERED: Furosemide 40 MG TAB PO SCH (10:15)
[2022-12-25] MEDS: Benzonatate 100 MG CAP PO PRN (10:16)
[2022-12-25] MEDS ORDERED: cefTRIAXone\\ROCEPHIN 2 GM in Sodium Chloride 0.9% 100 ML IVPB SCH (12:00)
[2022-12-25] MEDS ORDERED: Vancomycin 1 GM in Premix Bag 1 BAG IVPB SCH (15:00)
[2022-12-25] MEDS: cefTRIAXone\\ROCEPHIN 2 GM in Sodium Chloride 0.9% 100 ML IVPB SCH (15:12)
[2022-12-25] MEDS ORDERED: Furosemide 20 MG/2 ML VIAL SLOW IVP SCH (16:00)
[2022-12-25] MEDS: Thiamine 100 MG TAB PO SCH (16:53)
[2022-12-25] MEDS: GUAIFENESIN SF SOLN 200 MG/10 ML UDCUP PO PRN (16:54)
[2022-12-25] MEDS: Atorvastatin Calcium 40 MG TAB PO SCH (20:06)
[2022-12-25] MEDS: Metoprolol Tartrate 25 MG TAB PO SCH (20:07)
[2022-12-25] MEDS: DorzolamidE/Timolol 2%/0.5% Ophth Soln 10 ml Bottle EA EYE SCH (20:07)
[2022-12-26 02:52] LABS: Vancomycin, Trough 9.4 ug/mL
[2022-12-26 03:05] LABS: Anion Gap 10 mmol/L (10-20); BUN (Urea Nitrogen) 15 mg/dL (8.4-25.7); Calc. Creatinine Clearance 73 mL/min (70-130); Calcium 9.5 mg/dL (7.8-10.44); Carbon Dioxide 25 mmol/L (23-31); Chloride 102 mmol/L (98-107); Estimated GFR 89; Glucose 102 mg/dL (83-110); Magnesium 1.8 mg/dL (1.6-2.6); Potassium 3.9 mmol/L (3.5-5.1); Sodium 133 mmol/L (136-145)
[2022-12-26] MEDS: Methyl Salicylate/Menthol 85 GM TUBE TOP PRN (03:35)
[2022-12-26] MEDS: Famotidine/PF 20 mg/2ml Vial SLOW IVP SCH (10:17)
[2022-12-26] MEDS: Multivit, Therapeutic 1 TAB PO SCH (10:18)
[2022-12-26] MEDS: Metoprolol Tartrate 25 MG TAB PO SCH ×2 (10:18→22:09)
[2022-12-26] MEDS: Clopidogrel Bisulfate 75 MG TAB PO SCH (10:18)
[2022-12-26] MEDS: Folic Acid 1 MG TAB PO SCH (10:18)
[2022-12-26] MEDS: Furosemide 40 MG TAB PO SCH (10:18)
[2022-12-26] MEDS: Aspirin 81 mg Enteric Coated Tablet PO SCH (10:18)
[2022-12-26] MEDS: DorzolamidE/Timolol 2%/0.5% Ophth Soln 10 ml Bottle EA EYE SCH ×2 (10:19→22:10)
[2022-12-26] MEDS: Thiamine 100 MG TAB PO SCH (17:16)
[2022-12-26] MEDS: cefTRIAXone\\ROCEPHIN 2 GM in Sodium Chloride 0.9% 100 ML IVPB SCH (17:16)
[2022-12-26] MEDS: Atorvastatin Calcium 40 MG TAB PO SCH (22:09)
[2022-12-26] MEDS: Famotidine 20 MG TAB PO SCH (22:10)
[2022-12-26] MEDS: GUAIFENESIN SF SOLN 200 MG/10 ML UDCUP PO PRN (22:10)
[2022-12-27 02:50] LABS: #Lymphocytes 1.4 thou/uL (1.20-3.40); #Monocytes 1.1 thou/uL (0.11-0.59); #Neutrophils 11.7 thou/uL (1.40-6.50); %Basophils 0.1 % (0.0-1.0); %Eosinophils 0.3 % (0.0-10.0); %Lymphocytes 9.7 % (21.0-51.0); Hemoglobin 10.5 g/dL (14.0-18.0); Mean Corpuscular HGB CONC 31.2 g/dL (32.0-36.0); Mean Corpuscular Hemoglobin 29.7 pg (27.0-31.0); Mean Corpuscular Volume 95.1 fl (78.0-98.0); Mean Platelet Volume 8.1 fL (7.4-10.4); Platelet Count 190 10x3/uL (130-400); RBC Distribution Width 16.9 % (11.5-14.5); Red Blood Cell (RBC) Count 3.54 mill/uL (4.70-6.10); White Blood Cell (WBC) Count 14.2 10x3/uL (4.8-10.8)
[2022-12-27 03:11] LABS: Anion Gap 12 mmol/L (10-20); BUN (Urea Nitrogen) 16 mg/dL (8.4-25.7); Calc. Creatinine Clearance 82 mL/min (70-130); Calcium 9.4 mg/dL (7.8-10.44); Carbon Dioxide 23 mmol/L (23-31); Chloride 102 mmol/L (98-107); Estimated GFR 92; Glucose 114 mg/dL (83-110); Magnesium 1.8 mg/dL (1.6-2.6); Potassium 3.9 mmol/L (3.5-5.1); Sodium 133 mmol/L (136-145)
[2022-12-27] MEDS: Methyl Salicylate/Menthol 85 GM TUBE TOP PRN (03:46)
[2022-12-27] MEDS ORDERED: Magnesium 2 GM/50 ML(in water) 2 GM in Premix Bag 1 BAG IVPB SCH (04:00)
[2022-12-27] MEDS: DorzolamidE/Timolol 2%/0.5% Ophth Soln 10 ml Bottle EA EYE SCH ×2 (10:01→21:20)
[2022-12-27] MEDS: Metoprolol Tartrate 25 MG TAB PO SCH ×2 (10:02→21:20)
[2022-12-27] MEDS: Aspirin 81 mg Enteric Coated Tablet PO SCH (13:12)
[2022-12-27] MEDS: Benzonatate 100 MG CAP PO PRN ×2 (13:13→21:20)
[2022-12-27] MEDS: Multivit, Therapeutic 1 TAB PO SCH (13:13)
[2022-12-27] MEDS: Furosemide 40 MG TAB PO SCH (13:13)
[2022-12-27] MEDS: Famotidine 20 MG TAB PO SCH (13:13)
[2022-12-27] MEDS: Folic Acid 1 MG TAB PO SCH (13:13)
[2022-12-27] MEDS: Clopidogrel Bisulfate 75 MG TAB PO SCH (13:13)
[2022-12-27 15:38] LABS: Troponin I 1.186 ng/mL (< 0.028)
[2022-12-27] MEDS: cefTRIAXone\\ROCEPHIN 2 GM in Sodium Chloride 0.9% 100 ML IVPB SCH (16:52)
[2022-12-27 19:12] LABS: Critical Call Chem Troponin I RESULT DECREASING; Troponin I 0.964 ng/mL (< 0.028)
[2022-12-27] MEDS: Thiamine 100 MG TAB PO SCH (21:20)
[2022-12-27] MEDS: Atorvastatin Calcium 40 MG TAB PO SCH (21:20)
[2022-12-28] MEDS: Methyl Salicylate/Menthol 85 GM TUBE TOP PRN (04:00)
[2022-12-28] MEDS ORDERED: ePHEDrine 50 MG/ML VIAL ONE (07:35)
[2022-12-28] MEDS ORDERED: PROPOFOL 200 MG/20 ML VIAL ONE (07:35)
[2022-12-28 09:51] LABS: Hemoglobin 10.8 g/dL (14.0-18.0); Mean Corpuscular HGB CONC 30.3 g/dL (32.0-36.0); Mean Corpuscular Hemoglobin 29.4 pg (27.0-31.0); Mean Corpuscular Volume 96.9 fl (78.0-98.0); Mean Platelet Volume 8.3 fL (7.4-10.4); Platelet Count 227 10x3/uL (130-400); RBC Distribution Width 16.8 % (11.5-14.5); Red Blood Cell (RBC) Count 3.69 mill/uL (4.70-6.10); White Blood Cell (WBC) Count 13.7 10x3/uL (4.8-10.8)
[2022-12-28] MEDS: GUAIFENESIN SF SOLN 200 MG/10 ML UDCUP PO PRN (09:53)
[2022-12-28] MEDS: Folic Acid 1 MG TAB PO SCH (09:58)
[2022-12-28] MEDS: Furosemide 40 MG TAB PO SCH (09:58)
[2022-12-28] MEDS: DorzolamidE/Timolol 2%/0.5% Ophth Soln 10 ml Bottle EA EYE SCH (09:58)
[2022-12-28] MEDS: Aspirin 81 mg Enteric Coated Tablet PO SCH (09:58)
[2022-12-28] MEDS: Clopidogrel Bisulfate 75 MG TAB PO SCH (09:58)
[2022-12-28] MEDS: Metoprolol Tartrate 25 MG TAB PO SCH (09:58)
[2022-12-28] MEDS: Multivit, Therapeutic 1 TAB PO SCH (09:58)
[2022-12-28 10:17] LABS: Lymphocytes 11 % (21-51); MDiff Complete? YES; Monocytes 7 % (0-10); Neutrophil 82 % (42-75); Platelet Morphology Comment Appears Adequate; RBC Morphology Normal
[2022-12-28 10:20] LABS: Anion Gap 14 mmol/L (10-20); BUN (Urea Nitrogen) 18 mg/dL (8.4-25.7); Calc. Creatinine Clearance 77 mL/min (70-130); Carbon Dioxide 20 mmol/L (23-31); Chloride 103 mmol/L (98-107); Estimated GFR 90; Glucose 94 mg/dL (83-110); Magnesium 2.1 mg/dL (1.6-2.6); Potassium 5.5 mmol/L (3.5-5.1); Sodium 131 mmol/L (136-145)
[2022-12-28] MEDS: cefTRIAXone\\ROCEPHIN 2 GM in Sodium Chloride 0.9% 100 ML IVPB SCH (16:09)
[2022-12-28] MEDS: Thiamine 100 MG TAB PO SCH (17:35)
[2022-12-28 19:39] VITALS: BP 134/77; TEMP 98.1
== END 2022-12-28 19:50 | disposition short-term general hospital (02) | DRG 91 ==
LOC: ERS 16:07 → ERHOLD 18:10 → IMCU/EMU 12-22 02:37 → NEURO 12-22 16:55
PROVIDERS: ADMIT Family Medicine; ATTEND Internal Medicine
PROC: 3E03329 Introduction of Other Anti-infective into Peripheral Vein, Percutaneous Approach (ICD-10-PCS; 2022-12-21)
PROC: B246ZZ4 Ultrasonography of Right and Left Heart, Transesophageal (ICD-10-PCS; principal; 2022-12-28)
DX: I97.820 Postprocedural cerebrovascular infarction following cardiac surgery (principal); A40.9 Streptococcal sepsis, unspecified; I21.4 Non-ST elevation (NSTEMI) myocardial infarction; G93.41 Metabolic encephalopathy; I33.0 Acute and subacute infective endocarditis; I63.9 Cerebral infarction, unspecified; T82.7XXA Infection and inflammatory reaction due to other cardiac and vascular devices, implants and grafts, initial encounter; E87.1 Hypo-osmolality and hyponatremia; N17.9 Acute kidney failure, unspecified; I48.19 Other persistent atrial fibrillation; I50.22 Chronic systolic (congestive) heart failure; I42.9 Cardiomyopathy, unspecified; T82.6XXA Infection and inflammatory reaction due to cardiac valve prosthesis, initial encounter; I25.10 Atherosclerotic heart disease of native coronary artery without angina pectoris; E78.5 Hyperlipidemia, unspecified; R47.81 Slurred speech; I65.23 Occlusion and stenosis of bilateral carotid arteries; B95.5 Unspecified streptococcus as the cause of diseases classified elsewhere; J44.9 Chronic obstructive pulmonary disease, unspecified; I11.0 Hypertensive heart disease with heart failure; F17.210 Nicotine dependence, cigarettes, uncomplicated; F10.10 Alcohol abuse, uncomplicated; Z20.822 Contact with and (suspected) exposure to COVID-19; I73.9 Peripheral vascular disease, unspecified; R53.1 Weakness; I08.0 Rheumatic disorders of both mitral and aortic valves; H40.9 Unspecified glaucoma; Z98.890 Other specified postprocedural states; Z95.0 Presence of cardiac pacemaker; Z79.01 Long term (current) use of anticoagulants; Z79.899 Other long term (current) drug therapy; Z89.022 Acquired absence of left finger(s); Z95.2 Presence of prosthetic heart valve; Y83.8 Other surgical procedures as the cause of abnormal reaction of the patient, or of later complication, without mention of misadventure at the time of the procedure
CPT/HCPCS: 36415; 36416; 51701; 70450; 70496; 70498; 71045; 76705; 78452; 80048; 80053; 80061; 80202; 81003; 81015; 82378; 82553; 82805; 83605; 83735; 83880; 84145; 84484; 85025; 85610; 85652; 85730; 86140; 87040; 87077; 87086; 87186; 87811; 93005; 93010; 93017; 93306; 93312; 93880; 94760; 96365; A9500; J0692; J0696; J1650; J1940; J2270; J2543; J2704; J2785; J3370; J3370-JW; J3475; J3490; J7050; Q9967; S0028; U0002